=== PATIENT | male | born 1945 | race Caucasian/White ===

== ENCOUNTER → 2021-05-02 | Outpatient (CLI) | payer MEDICARE ==
[2014-07-13 15:48] VITALS: BP 112/57
[~2021-05-02] MED LIST: ALLO300T PO; ASPI-252 PO; ASPI-630 PO; ATOR40TA59 PO; CARV3.12 PO; CLOP75TA PO; CLOP75TA57 PO; DOCU-109 PO; FAMO-63 PO; FLUT16SP NS; FURO40TA4 PO; GABA600T7 PO; HYDR-2761 PO; LOVA40TA2 PO; MAGN296S68 PO; METF-658 PO; METF100010 PO; METF500T16 PO; MULT-658 PO; OMEG1CAP65 PO; SERT50TA PO; UBID400C3 PO; VENTOLIN HFA18 GM INH
== END ==
LOC: SURGPAT 13:34
PROVIDERS: ATTEND Neurological Surgery
DX: Z01.812 Encounter for preprocedural laboratory examination (principal); M48.062 Spinal stenosis, lumbar region with neurogenic claudication
CPT/HCPCS: 87641

== ENCOUNTER → 2021-05-10 | Outpatient (CLI) | payer MEDICARE ==
[2014-07-13 15:48] VITALS: BP 112/57
== END ==
LOC: LAB 09:52
PROVIDERS: ATTEND Neurological Surgery
DX: Z01.812 Encounter for preprocedural laboratory examination (principal); Z20.822 Contact with and (suspected) exposure to COVID-19; M48.062 Spinal stenosis, lumbar region with neurogenic claudication
CPT/HCPCS: U0003; U0005

== ENCOUNTER 2021-05-12 07:01 | Inpatient (IN) | payer MEDICARE ==
[2021-05-05 13:26] VITALS: BP 160/76
--- NOTE | 2021-05-06 15:22 | PREOP HP ---
DATE OF SERVICE: 05/12/2021 PREOPERATIVE HISTORY AND PHYSICAL HISTORY OF PRESENT ILLNESS: The patient is a pleasant 76-year-old man who is having difficulty with low back pain with standing or walking. He says if he sits, he gains virtually immediate relief. The pain has gradually become more severe. He says in August, his pain was severe and then his left leg buckled and he fell. When the pain is severe, he rates it 10/10. Sitting, his pain is 0/10. He does have difficulty getting up from a chair and/or the bed. He sits most of the time. He is taking gabapentin and Tylenol. He had physical therapy, which he said did not help him. He had 2 epidural steroid injections recently, which he said lasted about 2 weeks each. CURRENT MEDICATIONS: ProAir HFA, Tylenol, gabapentin, allopurinol, Pepcid, fluticasone, Lasix, metformin, sertraline, atorvastatin and Plavix. PAST MEDICAL HISTORY: COPD, sleep apnea, diabetes, coronary artery disease. PAST SURGICAL HISTORY: Cardiac bypass surgery, cholecystectomy, bilateral knee replacements, biceps tendon repair. FAMILY HISTORY: Cancer, diabetes, hypertension, heart disease. SOCIAL HISTORY: Retired, , nonsmoker. ALLERGIES: DEMEROL AND SHELLFISH. REVIEW OF SYSTEMS: A 12-point review of systems was performed and is noncontributory except that mentioned above. PHYSICAL EXAMINATION: GENERAL: Alert, pleasant, in no acute distress. HEENT: Head is normocephalic, atraumatic. SKIN: Warm and dry. MUSCULOSKELETAL: Lumbar paraspinal muscle bulk is normal, restricted range of motion of the lumbar spine, [id number] tenderness of the lower lumbar spine with palpation, normal range of motion of the lower extremities bilaterally. EXTREMITIES: No clubbing, cyanosis or edema. NEUROLOGIC: Alert and oriented x 3. Strength is 5/5 in the lower extremities except 4+/5 left hip flexor and 4+/5 right foot dorsiflexion. Sensory was intact to light touch in the bilateral lower extremities. Reflexes were present and symmetric in the lower extremities bilaterally. Negative straight leg raising bilaterally. Normal gait. IMAGING DATA: I reviewed the lumbar MRI scan. There is severe stenosis at L3-4 and L4-5. ASSESSMENT AND PLAN: I believe the problems at L3-4 and L4-5 are responsible for his symptoms. He should require a 2-level laminectomy to help deal with this problem. I spoke with him about this. I spoke about the rationale, the technique and the risks. I spoke about the expected postoperative course. He understands. He would like to proceed. ANATOLY DR: Curt TID: [id number] NAIMA
[~2021-05-12] VITALS: Ht 175.3 cm; Wt 123.5 kg
[~2021-05-12 07:01] MED LIST changes: -ATOR40TA59 PO; +DEXAMETHASONE SOD PHOS 4 MG/ML VIAL ONE; -DOCU-109 PO; -HYDR-2761 PO; +HYDROmorphone 2 MG/ML VIAL IVP PRN; +INSULIN LISPRO 100 UNIT/ML 3ML VIAL for OP,RR ONLY. SQ PRN; +IV RINGERS,LACTATED 1000ML 1,000 ML IV SCH; +LIDOCAINE 2% PF 5 ML VIAL. ONE; +MORPHINE SULFATE 2 MG/ML INJ. IVP PRN; +ONDANSETRON PF 4 MG/2 ML VIAL. ONE; +PHENYLEPHRINE 10 MG/ML VIAL. ONE; +PROCHLORPERAZINE 10 MG/2 ML VIAL. IVP PRN; +PROPOFOL 10 MG/ML (20ML) VIAL. IV ONE; +PROPOFOL 50 ML IV ONE; +REMIFENTANIL 1 MG VIAL. IV ONE; +ROCURONIUM 50 MG/5 ML VIAL. ONE; +SUCCINYLCHOLINE 200 MG/10 ML VIAL. ONE; +ceFAZolin 2GM PREMIX 2 GM/50 ML BAG IV ONE; +ceFAZolin SODIUM 1 GM in IV NORMAL SALINE 1000ML BAG 1,000 ML IRR ONE; +fentaNYL PF VIAL 100 MCG/2 ML VIAL IVP PRN; +fentaNYL PF VIAL 100 MCG/2 ML VIAL ONE
[2021-05-12 07:36] VITALS: BP 160/74
[2021-05-12] MEDS ORDERED: SEVOFLURANE > 120 MINUTES. IH ONE (07:36)
[2021-05-12] MEDS ORDERED: PROPOFOL 50 ML IV ONE ×2 (07:36→08:59)
[2021-05-12] MEDS ORDERED: BUPIVACAINE-EPI 0.5% 30 ML VIAL KIT. ONE (07:40)
[2021-05-12] MEDS ORDERED: KETOROLAC 60 MG/2 ML VIAL. ONE (07:40)
[2021-05-12] MEDS ORDERED: GELATIN SPONGE SIZE 100. ONE (07:40)
[2021-05-12] MEDS ORDERED: THROMBIN TOPICAL 20,000 UNIT SPRAY.SYRN KIT TP ONE (07:40)
[2021-05-12] MEDS ORDERED: ATOR40TA59 PO (07:44)
[2021-05-12] MEDS ORDERED: INSULIN LISPRO 100 UNIT/ML 3ML VIAL for OP,RR ONLY. SQ ONE (08:00)
[2021-05-12] MEDS ORDERED: GLYCOPYRROLATE 1 MG/5 ML VIAL. ONE (08:03)
[2021-05-12] MEDS ORDERED: NEOSTIGMINE METHYLSULFATE 5 MG/5 ML SYRINGE. ONE (08:03)
[2021-05-12] MEDS ORDERED: REMIFENTANIL 1 MG VIAL. IV ONE (08:51)
[2021-05-12] MEDS ORDERED: HYDROmorphone 2 MG/ML VIAL ONE (09:48)
[2021-05-12] MEDS ORDERED: NALOXONE 0.4 MG/ML VIAL. IV PRN (12:15)
[2021-05-12] MEDS ORDERED: NON FORMULARY ITEM (Albuterol Sulfate (Ventolin Hfa Inhaler) 2 PUFF) INH PRN (12:15)
[2021-05-12] MEDS ORDERED: CALCIUM CARBONATE 500 MG TAB.CHEW PO PRN (12:15)
[2021-05-12] MEDS ORDERED: fentaNYL PF VIAL 100 MCG/2 ML VIAL IVP PRN (12:15)
[2021-05-12] MEDS ORDERED: HYDROcodone/APAP 5/325MG 1 TAB TABLET PO PRN (12:15)
[2021-05-12] MEDS ORDERED: ACETAMINOPHEN 325 MG TABLET. PO PRN (12:15)
[2021-05-12] MEDS ORDERED: FLUTICASONE 50MCG/NASAL SPRAY 16GM BOTTLE. NS PRN (12:15)
[2021-05-12] MEDS ORDERED: MAGNESIUM HYDROXIDE 2,400 MG/30 ML ORAL.SUSP. PO PRN (12:15)
[2021-05-12] MEDS ORDERED: MAG HYDROX/ALUMINUM HYD/SIMETH 30 ML ORAL.SUSP PO PRN (12:15)
[2021-05-12] MEDS ORDERED: diphenhydrAMINE HCL 25 MG CAPSULE PO PRN (12:15)
[2021-05-12] MEDS ORDERED: 0.9 % SODIUM CHLORIDE 10 ML DISP.SYRIN. IV PRN (12:15)
[2021-05-12] MEDS ORDERED: ATROPINE 1 MG/10 ML DISP.SYRINGE. ONE (12:27)
[2021-05-12] MEDS ORDERED: ALBUTEROL SULFATE 2.5 MG/3 ML NEBU. NEB PRN (12:30)
[2021-05-12] MEDS ORDERED: ALBUTEROL SULFATE 2.5 MG/3 ML NEBU. NEB ONE (12:45)
[2021-05-12] MEDS ORDERED: fentaNYL PF VIAL 100 MCG/2 ML VIAL ONE (13:21)
[2021-05-12] MEDS: fentaNYL PF VIAL 100 MCG/2 ML VIAL IVP PRN ×4 (13:26→14:11)
[2021-05-12] MEDS: GABAPENTIN 300 MG CAPSULE. PO SCH ×2 (14:00→19:41)
[2021-05-12] MEDS: POTASSIUM CL 20MEQ D5-0.45NACL 1,000 ML IV SCH (17:18)
[2021-05-12 19:00] VITALS: BP 110/54
[2021-05-12] MEDS: METHOCARBAMOL 750 MG TABLET PO PRN (19:38)
[2021-05-12] MEDS: metFORMIN XR 500 MG TAB.ER.24H PO SCH (19:40)
[2021-05-12] MEDS: DOCUSATE SODIUM 100 MG CAPSULE. PO SCH (19:40)
[2021-05-12] MEDS: FAMOTIDINE 20 MG TABLET. PO SCH (19:41)
[2021-05-12] MEDS: SERTRALINE 50 MG TABLET. PO SCH (19:41)
[2021-05-12] MEDS: HYDROcodone/APAP 5/325MG 1 TAB TABLET PO PRN (22:11)
[2021-05-12 23:00] VITALS: BP 103/52
[2021-05-13 03:00] VITALS: BP 110/58
[2021-05-13] MEDS: POTASSIUM CL 20MEQ D5-0.45NACL 1,000 ML IV SCH (03:20)
[2021-05-13] MEDS: HYDROcodone/APAP 5/325MG 1 TAB TABLET PO PRN ×4 (06:00→22:56)
[2021-05-13] MEDS ORDERED: ceFAZolin SODIUM 3 GM in IV DEXTROSE 5% 100ML 100 ML IV PRN (06:00)
[2021-05-13 07:00] VITALS: BP 110/57
[2021-05-13] MEDS: METHOCARBAMOL 750 MG TABLET PO PRN (08:16)
[2021-05-13] MEDS: GABAPENTIN 300 MG CAPSULE. PO SCH ×3 (08:17→22:05)
[2021-05-13] MEDS: DOCUSATE SODIUM 100 MG CAPSULE. PO SCH ×3 (08:18→22:04)
[2021-05-13] MEDS: FUROSEMIDE 40 MG TABLET. PO SCH (09:00)
--- NOTE | 2021-05-13 10:27 | CONS ---
DATE OF CONSULTATION: 05/13/2021 PULMONARY CONSULTATION ATTENDING PHYSICIAN: Florencio Ambriz MD. REASON FOR CONSULTATION: Postop hypoxia. HISTORY OF PRESENT ILLNESS: The patient is a 76-year-old obese male with a BMI of 40. He sees my partner, Dr. Manuel in the office. The patient has history of obesity hypoventilation syndrome and sleep apnea. He has remote history of tobacco use. He uses CPAP with good compliance on a nightly basis. In addition, he is also on 2 liters of oxygen at nighttime. He does not use it during the day. He was hospitalized recently as he was having chronic back pain. The patient underwent a lumbar laminectomy. Postop, he had some issues with some hypoxia. The patient was subsequently extubated. He is currently requiring 4 liters of oxygen. He denies any shortness of breath. Denies any cough, fever, chills. No chest pains. No nausea, vomiting or diarrhea. I reviewed the patient's chest x-ray and it shows elevated hemidiaphragms with poor inspiratory effort, but no definite pneumonia or CHF observed. PAST MEDICAL HISTORY: Significant for history of COPD, history of MARIA DOLORES/OHS, history of diabetes and coronary artery disease. PAST SURGICAL HISTORY: Previously coronary artery bypass surgery, cholecystectomy, bilateral knee replacement and biceps tendon repair. FAMILY HISTORY: Cancer, diabetes, hypertension, and heart disease. SOCIAL HISTORY: Retired. . Remote history of tobacco use. ALLERGIES: MEPERIDINE, NABUMETONE. REVIEW OF SYSTEMS: A 12-point system obtained. Pertinent positives discussed in my present illness, otherwise noncontributory. All systems that were negative were reviewed as well. PHYSICAL EXAMINATION: VITAL SIGNS: Reviewed. Currently on 3 liters nasal cannula. Saturations are 93%. Afebrile, blood pressure stable. NECK: Supple. LUNGS: Clear. CARDIOVASCULAR: With a regular rate. ABDOMEN: Soft, obese. EXTREMITIES: With no pitting edema. LABORATORY DATA: Reviewed. Blood sugar 141. Chest x-ray as discussed in my history of present illness. IMPRESSION: 1. Mild postoperative hypoxia in a patient who is morbidly obese. The hypoxia is likely contributed by the effect of anesthetics and narcotics. He has no symptoms of congestive heart failure or pneumonia. His chest x-ray is clear except for elevated hemidiaphragms. 2. The patient with underlying obstructive sleep apnea/obesity hypoventilation syndrome. He uses CPAP with good compliance at nighttime along with 2 liters of oxygen. 3. Status post laminectomy. RECOMMENDATIONS: 1. The patient is clinically stable, currently down to 3 liters of oxygen. I will take him off oxygen and check his saturations on room air and also ambulate to see if he needs oxygen temporarily during the day. 2. Minimize narcotics. 3. Incentive spirometry. 4. P.r.n. bronchodilators. 5. Could be discharged home from a pulmonary standpoint today with or without oxygen and follow up with Dr. Manuel in the office. 6. Follow Dr. Ambriz's recommendations. Discussed with RN. LYNN/MARIELY/WILLA DR: LYNN/karel TID: [id number]
--- NOTE | 2021-05-13 10:37 | RAD ---
EXAM: AP View of the chest DATE: 05/13/2021 7:42 AM INDICATION: Reason: hypoxia, post op / Spl. Instructions: / History: COMPARISON: No Prior FINDINGS: The heart is not enlarged. Aortic calcifications are seen. Changes of median sternotomy. Left lung base and medial right lung base opacity likely consolidative process such as pneumonia. Tra ce pleural effusions. No pneumothorax. IMPRESSION: 1. Left lung bases and medial right lung base opacities likely atelectasis or consolidative process such as pneumonia. 2. Trace pleural effusions Electronically signed by: Amado Brown MD (05/13/2021 10:35 AM) [id number]
[2021-05-13 11:00] VITALS: BP 122/63
--- NOTE | 2021-05-13 11:29 | OP ---
DATE OF SURGERY: 05/12/2021 PREOPERATIVE DIAGNOSIS: Severe stenosis at L3-L4 and moderately severe stenosis at L4-L5 with neurogenic claudication. POSTOPERATIVE DIAGNOSIS: Severe stenosis at L3-L4 and moderately severe stenosis at L4-L5 with neurogenic claudication. OPERATION PERFORMED: Bilateral hemilaminotomies with decompression of dura and nerve root, L3-L4, left direct laminectomy L4-L5. The operation was done with EMG monitoring, SSEP monitoring, fluoroscopy, microscopic dissection. SPECIMEN: Decompression. SURGEON: Florencio Ambriz M.D. CAFE TEAM MEMBER: NICANOR Mehta, assisted with the surgery. She assisted with the exposure, the decompression as well as the closure. OPERATIVE INDICATIONS: The patient is a very pleasant 76-year-old who has developed problems with severe lower back pain along with pain in both of his lower extremities. Overall, the left leg had become the most painful and when speaking with him the morning of surgery that was the most symptomatic region.I explained to him the surgery, the risks, the technique. I explained the expected postoperative course, and he understood and wished to go ahead. DESCRIPTION OF PROCEDURE: Following general endotracheal anesthesia, the patient was positioned prone on the Yordan table. Lumbar region was prepped and draped in standard fashion. SAYRA hose and AV impulse boots were applied for DVT prophylaxis. The microscope was draped, fluoroscopy was draped and brought in the field. Monitoring was established. Ancef 3 grams was given less than 1 hour prior to initiation of the surgery. Using fluoroscopic guidance, a midline incision was made extending from mid L3 to mid L5, I dissected down through skin and subcutaneous tissue and on the left side, reflected the paraspinal muscles and placed a [place] microdisk retractor, brought in the microscope with a high speed air drill. I performed a generous hemilaminotomy at L3-L4. I grasped ligamentum flavum and peeled this away and performed a partial foraminotomy. I fully decompressed the entire region. I palpated the disc which was flat, no discectomy was warranted and the region looked very well decompressed. I went down to L4-L5 in a similar fashion, performed a generous hemilaminotomy and a partial foraminotomy with a high-speed air drill. I tilted the patient away from sc and drilled across to the contralateral side. I removed the epidural fat from the midline as well as opened further with a 2.5 [place] rongeurs superiorly and inferiorly and then worked further laterally and fully decompressed the region. Again, no discectomy was warranted. After palpating the disc at L3-L4, there was considerable scarring of the ligamentum flavum against the dura and it took some time to free this up with micro instruments and fully decompressed this region. I then went to the L3-L4 on the right side and reflected the paraspinal muscles and placed retractors. At this level, I burred down a generous hemilaminotomy, trimmed away thickened ligamentum flavum, performed a partial foraminotomy. I palpated beneath the dura and the disc was flat, no discectomy was warranted. I carefully obtained excellent hemostasis on both sides. At this point, I felt that I had an excellent decompression. I removed the retractor and obtained excellent hemostasis and closed the wound in layers with absorbable suture. The skin was closed with 4-0 subcuticular stitch. I was quite pleased with the surgery. KATELYNN/ELYSIA DR: Shannon TID: [id number] NAIMA
[2021-05-13] MEDS: metFORMIN XR 500 MG TAB.ER.24H PO SCH ×2 (11:46→22:05)
[2021-05-13] MEDS: ALLOPURINOL 300 MG TABLET. PO SCH (11:46)
--- NOTE | 2021-05-13 12:53 | PDOC ---
PROGRESS NOTES Date of Service DATE: 05/13/21 TIME: 12:50 Subjective Subjective POD #1 S/P lumbar decompression L3-4, L4-5 up in chair, eating lunch legs and hips feel much better, some incisional pain- controlled with medication Objective Objective Vital Signs Date Time Temp Pulse Resp B/P (MAP) Pulse Ox O2 Delivery O2 Flow Rate FiO2 05/13/21 11:47 Nasal Cannula 2.0 05/13/21 11:00 97.6 74 20 122/63 (82) 91 97.6 Intake and Output 05/13/21 07:00 Intake Total 1925 ml Output Total 550 ml Balance 1375 ml Intake Oral 725 ml IV Total 1200 ml Output Urine Total 500 ml Estimated Blood Loss 50 ml Physical Exam General: Alert, Oriented X3, Cooperative, No acute distress MUSCULOSKELETAL: Other (BROWN) Neuro: Normal speech Skin: Other (Dressing dry, intact) Plan Plan of Care continue PT/ OT possible dc tomorrow with [facility] may need SNF d/w RN Comment Review of Relevant I have reviewed the following items cristian (where applicable) has been applied. Labs Laboratory Tests Test 05/12/21 07:34 05/12/21 09:39 05/12/21 10:48 05/12/21 12:38 Glucose (Fingerstick) 145 mg/dL (70-99) 133 mg/dL (70-99) 95 mg/dL (70-99) 128 mg/dL (70-99) Test 05/12/21 18:07 05/12/21 19:55 05/13/21 07:09 05/13/21 11:16 Glucose (Fingerstick) 113 mg/dL (70-99) 204 mg/dL (70-99) 141 mg/dL (70-99) 161 mg/dL (70-99) Laboratory Tests Test 05/12/21 18:07 05/12/21 19:55 05/13/21 07:09 05/13/21 11:16 Glucose (Fingerstick) 113 mg/dL (70-99) 204 mg/dL (70-99) 141 mg/dL (70-99) 161 mg/dL (70-99) Medications Current Medications Cefazolin Sodium 1 gm/Sodium Chloride 1,000 ml @ 1,000 mls/hr 1X ONCE IRR Last administered on 05/12/21at 09:34; Start 05/12/21 at 06:00; Stop 05/12/21 at 06:59; Status DC Fentanyl Citrate (Fentanyl 2ml Vial) 25 mcg PRN Q5MIN PRN IVP MILD PAIN 1-3 Last administered on 05/12/21at 14:11; Start 05/12/21 at 06:00; Stop 05/13/21 at 05:59; Status DC Fentanyl Citrate (Fentanyl 2ml Vial) 50 mcg PRN Q5MIN PRN IVP MODERATE PAIN 4- 6; Start 05/12/21 at 06:00; Stop 05/13/21 at 05:59; Status DC Morphine Sulfate (Morphine Sulfate) 1 mg PRN Q10MIN PRN IVP SEVERE PAIN 7-10; Start 05/12/21 at 06:00; Stop 05/13/21 at 05:59; Status DC Ringer's Solution 1,000 ml @ 30 mls/hr Q24H IV Last administered on 05/12/21at 07:48; Start 05/12/21 at 06:00; Stop 05/12/21 at 17:59; Status DC Hydromorphone HCl (Dilaudid) 0.5 mg PRN Q10MIN PRN IVP SEVERE PAIN 7-10, 2nd CHOICE; Start 05/12/21 at 06:00; Stop 05/13/21 at 05:59; Status DC Prochlorperazine Edisylate (Compazine) 5 mg PACU PRN PRN IVP NAUSEA, MRX1; Start 05/12/21 at 06:00; Stop 05/13/21 at 05:59; Status DC Cefazolin Sodium/ Dextrose 50 ml @ 100 mls/hr 1X PREOP PRN IV PRIOR TO PROCEDURE; Start 05/12/21 at 06:00; Stop 05/12/21 at 06:28; Status DC Cefazolin Sodium 3 gm/Dextrose 100 ml @ 200 mls/hr 1X PREOP PRN IV PRIOR TO PROCEDURE Last administered on 05/12/21at 09:18; Start 05/13/21 at 06:00; Stop 05/13/21 at 15:00 Insulin Human Lispro (HumaLOG VIAL for OP,RR ONLY) 0-10 units PRN Q1HR PRN SQ PER PROTOCOL Last administered on 05/12/21at 07:54; Start 05/12/21 at 06:30; Stop 05/13/21 at 06:29; Status DC Gelatin (Gelfoam Size 100) 1 each STK-MED ONCE .ROUTE Last administered on 05/12/21at 09:34; Start 05/12/21 at 07:40; Stop 05/12/21 at 07:40; Status DC Bupivacaine HCl/ Epinephrine Bitart (Sensorcain-Epi 0.5% Kit) 30 ml STK-MED ONCE .ROUTE Last administered on 05/12/21at 09:34; Start 05/12/21 at 07:40; Stop 05/12/21 at 07:40; Status DC Ketorolac Tromethamine (Toradol Im) 60 mg STK-MED ONCE .ROUTE Last administered on 05/12/21at 09:34; Start 05/12/21 at 07:40; Stop 05/12/21 at 07:40; Status DC Thrombin 20,000 unit STK-MED ONCE TP Last administered on 05/12/21at 09:34; Start 05/12/21 at 07:40; Stop 05/12/21 at 07:41; Status DC Propofol (Diprivan) 200 mg STK-MED ONCE IV ; Start 05/12/21 at 05:47; Stop 05/12/21 at 07:47; Status DC Lidocaine HCl (Lidocaine Pf 2% Vial) 5 ml STK-MED ONCE .ROUTE ; Start 05/12/21 at 05:47; Stop 05/12/21 at 07:47; Status DC Ondansetron HCl (Zofran) 4 mg STK-MED ONCE .ROUTE ; Start 05/12/21 at 05:47; Stop 05/12/21 at 07:47; Status DC Phenylephrine HCl (Michael-Synephrine Inj) 10 mg STK-MED ONCE .ROUTE ; Start 05/12/21 at 05:47; Stop 05/12/21 at 07:47; Status DC Propofol 50 ml @ As Directed STK-MED ONCE IV ; Start 05/12/21 at 05:47; Stop 05/12/21 at 07:47; Status DC Dexamethasone Sodium Phosphate (Decadron) 4 mg STK-MED ONCE .ROUTE ; Start 05/22 at 05:47; Stop 05/12/21 at 07:47; Status DC Fentanyl Citrate (Fentanyl 2ml Vial) 100 mcg STK-MED ONCE .ROUTE ; Start at 05:47; Stop 05/12/21 at 07:47; Status DC Rocuronium [place] (Zemuron) 50 mg STK-MED ONCE .ROUTE ; Start 05/12/21 at 05:47; Stop 05/12/21 at 07:47; Status DC Remifentanil HCl (Ultiva) 1 mg STK-MED ONCE IV ; Start 05/12/21 at 05:48; Stop 05/12/21 at 07:48; Status DC Succinylcholine Chloride (Anectine) 200 mg STK-MED ONCE .ROUTE ; Start 05/12/21 at 06:04; Stop 05/12/21 at 08:04; Status DC Propofol 50 ml @ As Directed STK-MED ONCE IV ; Start 05/12/21 at 07:36; Stop 05/12/21 at 09:37; Status DC Sevoflurane (Ultane) 90 ml STK-MED ONCE IH ; Start 05/12/21 at 07:36; Stop 05/12/21 at 09:37; Status DC Glycopyrrolate (Robinul) 1 mg STK-MED ONCE .ROUTE ; Start 05/12/21 at 08:03; Stop 05/12/21 at 10:03; Status DC Neostigmine [place] (Neostigmine Methylsulfate) 5 mg STK-MED ONCE .ROUTE ; Start 05/12/21 at 08:03; Stop 05/12/21 at 10:04; Status DC Remifentanil HCl (Ultiva) 1 mg STK-MED ONCE IV ; Start 05/12/21 at 08:51; Stop 05/12/21 at 10:52; Status DC Propofol 50 ml @ As Directed STK-MED ONCE IV ; Start 05/12/21 at 08:59; Stop 05/12/21 at 11:00; Status DC Hydromorphone HCl (Dilaudid) 2 mg STK-MED ONCE .ROUTE ; Start 05/12/21 at 09:48; Stop 05/12/21 at 11:48; Status DC Allopurinol (Zyloprim) 300 mg DAILYBFRLUN PO Last administered on 05/13/21at 11:46; Start 05/13/21 at 11:30 Atorvastatin Calcium (Lipitor) 40 mg QHS PO ; Start 05/13/21 at 21:00 Famotidine (Pepcid) 20 mg HS PO Last administered on 05/12/21at 19:41; Start 05/12/21 at 21:00 Fluticasone Propionate (Flonase) 2 spray PRN DAILY PRN NS ALLERGY CONTROL; Start 05/12/21 at 12:15 Furosemide (Lasix) 40 mg DAILY PO ; Start 05/13/21 at 09:00 Metformin HCl (Glucophage Xr) 500 mg DAILYBFRLUN PO Last administered on 05/13/21at 11:46; Start 05/13/21 at 11:30 Sertraline HCl (Zoloft) 50 mg HS PO Last administered on 05/12/21at 19:41; Start 05/12/21 at 21:00 Non-Formulary Medication (Albuterol Sulfate (Ventolin Hfa Inhaler)) 2 puff PRN QID PRN INH WHEEZING; Start 05/12/21 at 12:15; Status UNV Gabapentin (Neurontin) 300 mg TID PO Last administered on 05/13/21at 08:17; Start 05/12/21 at 14:00 Metformin HCl (Glucophage Xr) 1,000 mg HS PO Last administered on 05/12/21at 19:40; Start 05/12/21 at 21:00 Fentanyl Citrate (Fentanyl 2ml Vial) 50 mcg PRN Q2HR PRN IVP PAIN; Start 05/02 07/22 at 12:15 Acetaminophen (Tylenol) 650 mg PRN Q6HRS PRN PO MILD PAIN / TEMP > 100.3'F; Start 05/12/21 at 12:15 Al Hydroxide/Mg Hydroxide (Mylanta Plus Xs) 30 ml PRN Q3HRS PRN PO HEARTBURN / GAS; Start 05/12/21 at 12:15 Calcium Carbonate/ Glycine (Tums) 500 mg PRN Q3HRS PRN PO INDIGESTION; Start 05/12/21 at 12:15 Diphenhydramine HCl (Benadryl) 25 mg PRN Q6HRS PRN PO ITCHING; Start 05/12/21 at 12:15 Naloxone HCl (Narcan) 0.1 mg PRN Q2MIN PRN IV SEE COMMENTS; Start 05/12/21 at 12:15 Sodium Chloride (Normal Saline Flush) 3 ml QSHIFT PRN IV AFTER MEDS AND BLOOD DRAWS; Start 05/12/21 at 12:15 Potassium Chloride/Dextrose/ Sod Cl 1,000 ml @ 75 mls/hr [id number] IV Last administered on 05/12/21at 17:18; Start 05/12/21 at 14:00 Acetaminophen/ Hydrocodone Bitart (Lortab 5/325) 1 tab PRN Q4HRS PRN PO MILD PAIN 1-3 (2ND CHOICE) Last administered on 05/12/21at 17:18; Start 05/12/21 at 12:15 Acetaminophen/ Hydrocodone Bitart (Lortab 5/325) 2 tab PRN Q4HRS PRN PO MODERATE PAIN, SEVERE PAIN Last administered on 05/13/21at 11:47; Start 05/12/21 at 12:15 Methocarbamol (Robaxin) 750 mg PRN TID PRN PO MUSCLE SPASMS Last administered on 05/13/21at 08:16; Start 05/12/21 at 12:15 Docusate Sodium (Colace) 100 mg BID PO ; Start 05/12/21 at 21:00 Magnesium Hydroxide (Milk Of Magnesia) 2,400 mg PRN Q12HR PRN PO CONSTIPATION; Start 05/12/21 at 12:15 Albuterol Sulfate (Ventolin Neb Soln) 2.5 mg PRN QID PRN NEB SHORTNESS OF BREATH; Start 05/12/21 at 12:30 Atropine Sulfate (ATROPINE 1mg SYRINGE) 1 mg STK-MED ONCE .ROUTE ; Start 05/12/21 at 12:27; Stop 05/12/21 at 12:27; Status DC Albuterol Sulfate (Ventolin Neb Soln) 2.5 mg 1X ONCE NEB ; Start 05/12/21 at 12:45; Stop 05/12/21 at 12:46; Status DC Fentanyl Citrate (Fentanyl 2ml Vial) 100 mcg STK-MED ONCE .ROUTE ; Start 05/12/21 at 13:21; Stop 05/12/21 at 13:22; Status DC Active Scripts Active Reported Atorvastatin Calcium 40 Mg Tablet 1 Tab PO DAILY Zoloft (Sertraline Hcl) 50 Mg Tablet 50 Mg PO HS Furosemide 40 Mg Tablet 40 Mg PO DAILY Ventolin Hfa Inhaler (Albuterol Sulfate) 18 Gm Hfa.aer.ad 2 Puff INH PRN QID PRN Fluticasone Propionate Nasal Sebastian (Fluticasone Propionate) 16 Gm Sebastian.susp 2 Sebastian NS PRN DAILY PRN Gabapentin 600 Mg Tablet 300 Mg PO TID Metformin Hcl Er (Metformin Hcl) 500 Mg Tab.er.24h 500 Mg PO DAILYBFRLUN Metformin Hcl Er (Metformin Hcl) 1,000 Mg Tab.er.24 1,000 Mg PO HS Clopidogrel (Clopidogrel Bisulfate) 75 Mg Tablet 75 Mg PO DAILY Pepcid (Famotidine) 20 Mg Tablet 20 Mg PO HS Allopurinol 300 Mg Tablet 1 Tab PO DAILYBFRLUN Vitals/I & O Vital Sign - Last 24 Hours 05/12/21 05/12/21 05/12/21 05/12/21 12:56 13:11 13:26 13:41 Pulse 86 84 80 80 Resp 16 18 16 14 B/P (MAP) 156/69 147/71 149/73 111/63 Pulse Ox 93 94 96 87 O2 Delivery Simple Mask Simple Mask Simple Mask Room Air O2 Flow Rate 15 8 6 05/12/21 05/12/21 05/12/21 05/12/21 13:56 14:11 14:45 17:18 Pulse 78 74 Resp 18 13 B/P (MAP) 139/70 134/70 Pulse Ox 94 94 89 O2 Delivery Nasal Cannula Nasal Cannula Nasal Cannula Nasal Cannula O2 Flow Rate 3 3 3.0 3.0 05/12/21 05/12/21 05/12/21 05/12/21 19:00 19:38 22:11 22:41 Temp 97.5 97.5 Pulse 68 Resp 19 18 18 B/P (MAP) 110/54 (72) Pulse Ox 92 92 92 O2 Delivery Nasal Cannula Nasal Cannula Nasal Cannula Nasal Cannula O2 Flow Rate 2.0 3.0 3.0 3.0 05/12/21 05/13/21 05/13/21 05/13/21 23:00 03:00 06:00 06:30 Temp 98.0 98.1 98.0 98.1 Pulse 64 72 Resp 18 18 20 18 B/P (MAP) 103/52 (69) 110/58 (75) Pulse Ox 94 92 92 92 O2 Delivery Nasal Cannula Nasal Cannula Nasal Cannula Nasal Cannula O2 Flow Rate 3.0 3.0 3.0 3.0 11/06/2105/13/21 05/13/21 07:00 11:00 11:47 Temp 98.8 97.6 98.8 97.6 Pulse 73 74 Resp 19 20 B/P (MAP) 110/57 (74) 122/63 (82) Pulse Ox 93 91 O2 Delivery Nasal Cannula Nasal Cannula Nasal Cannula O2 Flow Rate 3.0 3.0 2.0 Intake and Output 05/12/21 05/12/21 05/13/21 15:00 23:00 07:00 Intake Total 1200 ml 600 ml 125 ml Output Total 50 ml 500 ml Balance 1150 ml 600 ml -375 ml Justifications for Admission Other Justification BRO BARRERA MD May 13, 2021 12:53
[2021-05-13 15:00] VITALS: BP 113/64
[2021-05-13 16:42] LABS: HEMATOCRIT 38.1 % (39.0-53.0); HEMOGLOBIN 12.7 g/dL (13.0-17.5); WHITE BLOOD COUNT 8.5 x10^3/uL (4.0-11.0)
[2021-05-13 17:14] LABS: BLOOD UREA NITROGEN 12 mg/dL (8-26); CALCIUM 8.4 mg/dL (8.5-10.1); CARBON DIOXIDE 37 mmol/L (21-32); CHLORIDE 102 mmol/L (98-107); CREATININE 0.9 mg/dL (0.7-1.3); GFR 81.6; GLUCOSE 133 mg/dL (70-99); POTASSIUM 4.1 mmol/L (3.5-5.1); SODIUM 138 mmol/L (136-145)
--- NOTE | 2021-05-13 17:14 | PATHOLOGY ---
[facility] Accession Number: [id number] . 01 Material submitted: . vertebral column - LUMBAR DECOMPRESSION . 01 Clinical history: . LUMBAR STENOSIS LUMBAR MICRODECOMPRESSION . 02 Diagnosis: Segments of fibrocartilaginous and skeletal muscle tissue and bone, lumbar decompression: - Degenerative changes of fibrocartilaginous tissue. (JPM:pit; 05/13/2021) QTP 05/13/2021 1402 Local . 02 Comment: There is no evidence of an acute inflammatory process or malignancy. (JPM:[facility]; 05/13/2021) . 02 Electronically signed: . Jason Aleman MD, Pathologist NPI- [id number] . 01 Gross description: . The specimen is received in formalin, labeled "Diaz Romero, lumbar decompression". Received are multiple segments of pale whatley to pink-whatley fibrous tissue admixed with fragments of gritty bone measuring 4.5 x 4.1 x 0.7 cm in aggregate dimensions. The specimen is submitted representatively in cassette A1, following light decalcification. ([facility]; 05/12/2021) NRI/NRI 05/12/2021 1925 Local . 02 Pathologist provided ICD-10: M99.73 . 02 CPT . 943930, 503311 Specimen Comment: A courtesy copy of this report has been sent to [phone], [phone] Specimen Comment: [id number] Specimen Comment: Report sent to / DR MCGHEE Specimen Comment: A duplicate report has been generated due to demographic updates. Performed at: [address], [place], [place] [id number] MD Shlomo Jarrell MD Phone: [phone] Performed at: 02 [facility] [address] [place], [place] [id number] MD Jason Aleman MD Phone: [phone]
--- NOTE | 2021-05-13 18:53 | CONS ---
DATE OF CONSULTATION: 05/13/2021 LOCATION: He is in room 406. ATTENDING PHYSICIAN: Florencio Ambriz MD REASON FOR CONSULTATION: The patient was seen at the request of Dr. Ambriz for rehab evaluation. HISTORY: This is a 76-year-old right-handed male with chronic lower back pain from injury sustained initially in 1961, he had few more injuries, last injury in 08/2020. He usually bowls for recreation. He did not do it after his injury in August, but he did some in the summer, but in the last few months, he is having more difficulty, so he did not do any bowling. He admits back pain with radiation to both lower extremities. The patient admits more pain while standing and walking. Sitting eases his pain. He had 1 episode of his left leg buckling and he fell down in August. The patient is having difficulty getting up from chair and bed secondary to pain. Has been spending most of the time sitting up. He has been taking gabapentin and Tylenol. He had 2 lumbar epidural steroid injections, which helped relieve the pain only for about 2 weeks each time. He had physical therapy, did not help him much. PAST MEDICAL HISTORY: Includes chronic obstructive pulmonary disease, sleep apnea, diabetes mellitus, coronary artery disease status post coronary artery bypass graft, cholecystectomy, bilateral total knee arthroplasty done by Dr. Radu Carpio in the past, biceps tendon repair, bilateral carpal tunnel surgery. MEDICATIONS: He had been using ProAir, gabapentin, allopurinol, Pepcid, fluticasone, Lasix, metformin, sertraline, atorvastatin and Plavix and he uses oxygen by nasal cannula at 2 liters at nighttime. SOCIAL HISTORY: The patient is retired, . Nonsmoker. Lives alone. Had 3 steps to enter the house with no basement and no steps inside the house. FAMILY HISTORY: Carcinoma, diabetes mellitus, hypertension and heart disease. ALLERGIES: HE IS KNOWN ALLERGIC TO DEMEROL, SHELLFISH AND RELAFEN. The patient since admission underwent bilateral hemilaminectomies with decompression of the dura and nerve root at L3-L4, left direct laminectomy at L4-L5 for treatment of severe lumbar spinal stenosis at L3-L4, moderately severe stenosis at L4-L5 with neurogenic claudication. He admits continued soreness in his lower back. The patient has been voiding, had no bowel movement, usually he gets diarrhea. The patient would like to go home with home health. He had his step [id number] from [place] can come and help him, but she is on disability and 60 years old. PHYSICAL EXAMINATION:. GENERAL: Today revealed an elderly male. He is alert, oriented to time, place, person and circumstance, follows commands appropriately. NEUROLOGIC: Moves all 4 extremities voluntarily where he had 4+/5 grade muscle strength with relatively increased weakness of toe dorsiflexors, especially of right big toe. Deep tendon reflexes are decreased overall with absent knee and ankle jerks. He had pain free range of motion of both hip joints. He had tenderness to palpation over lumbar paraspinal muscles with recent tissue edema and operative wound had dressing in place. He had tenderness to palpation over lumbar area and sacroiliac joint. Straight leg raising test is negative bilaterally. The patient requires minimal assistance in coming to a standing position. Despite pain, he made a few steps at bedside using a roller walker. He gets tired very easily. His back pain is the one limiting his walking. His oxygen saturation dropped to 86% on room air. ASSESSMENT: 1. Chronic lower back pain from degenerative disk disease and degenerative joint disease of lumbar vertebrae with lumbar spinal stenosis, status post lumbar decompression laminectomy with postoperative pain and mobility limitations. 2. Diabetes mellitus with peripheral neuropathy. 3. History of coronary artery disease status post coronary artery bypass graft, bilateral total knee arthroplasty, chronic obstructive pulmonary disease, sleep apnea, obesity, clinical evidence of peripheral neuropathy from diabetes mellitus. RECOMMENDATIONS: Agree with the plan for physical therapy with occupational therapy and use of ice packs to his lower back. I thought of trying abdominal binder as lumbar corset, but he does not like to have the pressure on his back as he admits that causes increased discomfort. To see how he does with pain control in the next day or so. If he is doing well, hopefully home. If not, to consider transfer to rehab or [facility] care unit for continued care. Dr. Ambriz, I appreciate asking me to participate in the care of this interesting patient. I will be glad to see him for followup with you on as needed basis. MAYNOR FAIRCHILD: Guilherme TID: [id number]
[2021-05-13 19:00] VITALS: BP 126/61
[2021-05-13] MEDS: SERTRALINE 50 MG TABLET. PO SCH (22:04)
[2021-05-13] MEDS: ATORVASTATIN CALCIUM 40 MG TABLET. PO SCH (22:04)
[2021-05-13] MEDS: FAMOTIDINE 20 MG TABLET. PO SCH (22:05)
[2021-05-13 23:00] VITALS: BP 147/64
[2021-05-14 02:49] VITALS: BP 145/71
[2021-05-14 07:00] VITALS: BP 140/63
--- NOTE | 2021-05-14 07:16 | PDOC ---
PULMONARY PROGRESS NOTES DATE: 05/14/21 TIME: 07:12 Subjective 02 2 lpm didn't use cpap last night now says he doesn't use cpap at home no sob Vitals Vital Signs Date Time Temp Pulse Resp B/P (MAP) Pulse Ox O2 Delivery O2 Flow Rate FiO2 05/14/21 02:49 98.0 69 18 145/71 (95) 95 Nasal Cannula 3.0 98.0 ROS: No Nausea General: Alert HEENT: Other (nc at perr) Lungs: Clear Cardiovascular: S1, S2 Abdomen: Soft Neuro Exam: Alert Extremities: No Edema Skin: Warm Labs Laboratory Tests Test 05/12/21 07:34 05/12/21 09:39 05/12/21 10:48 05/12/21 12:38 Glucose (Fingerstick) 145 mg/dL (70-99) 133 mg/dL (70-99) 95 mg/dL (70-99) 128 mg/dL (70-99) Test 05/12/21 18:07 05/12/21 19:55 05/13/21 07:09 05/13/21 11:16 Glucose (Fingerstick) 113 mg/dL (70-99) 204 mg/dL (70-99) 141 mg/dL (70-99) 161 mg/dL (70-99) Test 05/13/21 16:10 05/13/21 16:34 05/13/21 20:07 White Blood Count 8.5 x10^3/uL (4.0-11.0) Hemoglobin 12.7 g/dL (13.0-17.5) Hematocrit 38.1 % (39.0-53.0) Platelet Count 171 x10^3/uL (140-400) Sodium Level 138 mmol/L (136-145) Potassium Level 4.1 mmol/L (3.5-5.1) Chloride Level 102 mmol/L (98-107) Carbon Dioxide Level 37 mmol/L (21-32) Anion Gap (6-14) Blood Urea Nitrogen 12 mg/dL (8-26) Creatinine 0.9 mg/dL (0.7-1.3) Estimated GFR (Cockcroft-Gault) 81.6 Glucose Level 133 mg/dL (70-99) Calcium Level 8.4 mg/dL (8.5-10.1) Glucose (Fingerstick) 140 mg/dL (70-99) 168 mg/dL (70-99) Laboratory Tests Test 05/13/21 11:16 05/13/21 16:10 05/13/21 16:34 05/13/21 20:07 Glucose (Fingerstick) 161 mg/dL (70-99) 140 mg/dL (70-99) 168 mg/dL (70-99) White Blood Count 8.5 x10^3/uL (4.0-11.0) Hemoglobin 12.7 g/dL (13.0-17.5) Hematocrit 38.1 % (39.0-53.0) Platelet Count 171 x10^3/uL (140-400) Sodium Level 138 mmol/L (136-145) Potassium Level 4.1 mmol/L (3.5-5.1) Chloride Level 102 mmol/L (98-107) Carbon Dioxide Level 37 mmol/L (21-32) Anion Gap (6-14) Blood Urea Nitrogen 12 mg/dL (8-26) Creatinine 0.9 mg/dL (0.7-1.3) Estimated GFR (Cockcroft-Gault) 81.6 Glucose Level 133 mg/dL (70-99) Calcium Level 8.4 mg/dL (8.5-10.1) Medications Active Scripts Medications Dose Route/Sig Max Daily Dose Days Date Category Atorvastatin Calcium 40 Mg Tablet 1 Tab PO DAILY 05/12/21 Reported Zoloft (Sertraline Hcl) 50 Mg Tablet 50 Mg PO HS 05/05/21 Reported Furosemide 40 Mg Tablet 40 Mg PO DAILY 05/05/21 Reported Ventolin Hfa Inhaler (Albuterol Sulfate) 18 Gm Hfa.aer.ad 2 Puff INH PRN QID PRN 05/05/21 Reported Fluticasone Propionate Nasal [place] (Fluticasone Propionate) 16 Gm [place].susp 2 [place] NS PRN DAILY PRN 05/05/21 Reported Gabapentin 600 Mg Tablet 300 Mg PO TID 05/05/21 Reported Metformin Hcl Er (Metformin Hcl) 500 Mg Tab.er.24h 500 Mg PO DAILYBFRLUN 05/05/21 Reported Metformin Hcl Er (Metformin Hcl) 1,000 Mg Tab.er.24 1,000 Mg PO HS 05/05/21 Reported Clopidogrel (Clopidogrel Bisulfate) 75 Mg Tablet 75 Mg PO DAILY 05/05/21 Reported Pepcid (Famotidine) 20 Mg Tablet 20 Mg PO HS 07/13/14 Reported Allopurinol 300 Mg Tablet 1 Tab PO DAILYBFRLUN 03/19/14 Reported Impression . IMPRESSION: 1. Mild postoperative hypoxia in a patient who is morbidly obese. The hypoxia is likely contributed by the effect of anesthetics and narcotics. He has no symptoms of congestive heart failure or pneumonia. His chest x-ray is clear except for elevated hemidiaphragms. 2. The patient with underlying obstructive sleep apnea/obesity hypoventilation syndrome. doesnt use CPAP with 2 liters of oxygen at home. 3. Status post laminectomy. Plan . RECOMMENDATIONS: 1. titrate fio2 to keep sat 90% on 2 lpm not on home 02 6 min walk at [place] 2. Minimize narcotics. avoid oversedation 3. Incentive spirometry to use multiple times an hr while awake 4. bronchodilators. 5. follow up with Dr. Manuel in the office. 6. Follow Dr. Ambriz's recommendations. 7. champ the importance of tx discussed in details advised to use cpap during sleep discussed w rn ok to [place] from pulm standpoint JEANETTE ROMERO MD May 14, 2021 07:16
[2021-05-14] MEDS: GABAPENTIN 300 MG CAPSULE. PO SCH ×3 (08:34→21:10)
[2021-05-14] MEDS: FUROSEMIDE 40 MG TABLET. PO SCH (08:34)
[2021-05-14] MEDS: DOCUSATE SODIUM 100 MG CAPSULE. PO SCH ×2 (08:34→21:10)
--- NOTE | 2021-05-14 10:08 | PDOC ---
PROGRESS NOTES Date of Service DATE: 05/14/21 TIME: 10:03 Subjective Subjective He continues with back pain with any movement and he is passing gases but no bowel movement yet and voiding well and he is getting up and walking with roller walker to bath room. He feels like he can go home tomorrow. Objective Objective Vital Signs Date Time Temp Pulse Resp B/P (MAP) Pulse Ox O2 Delivery O2 Flow Rate FiO2 05/14/21 07:30 Nasal Cannula 4.0 05/14/21 07:00 98.3 82 16 140/63 (88) 94 98.3 Intake and Output 05/14/21 07:00 Intake Total 1120 ml Output Total 1070 ml Balance 50 ml Intake Oral 1120 ml Output Urine Total 1070 ml # Voids 1 Physical Exam Physical Exam He is comfortable supine in bed and is moves all 4 extremities to commands and he continues with painfully limited lumbar spine ROM with diffuse tenderness to palpation and dressing in place. Plan Plan of Retirement when he feels comfortable with home health follow up. Comment Review of Relevant I have reviewed the following items cristian (where applicable) has been applied. Labs Laboratory Tests Test 05/12/21 10:48 05/12/21 12:38 05/12/21 18:07 05/12/21 19:55 Glucose (Fingerstick) 95 mg/dL (70-99) 128 mg/dL (70-99) 113 mg/dL (70-99) 204 mg/dL (70-99) Test 05/13/21 07:09 05/13/21 11:16 05/13/21 16:10 05/13/21 16:34 Glucose (Fingerstick) 141 mg/dL (70-99) 161 mg/dL (70-99) 140 mg/dL (70-99) White Blood Count 8.5 x10^3/uL (4.0-11.0) Hemoglobin 12.7 g/dL (13.0-17.5) Hematocrit 38.1 % (39.0-53.0) Platelet Count 171 x10^3/uL (140-400) Sodium Level 138 mmol/L (136-145) Potassium Level 4.1 mmol/L (3.5-5.1) Chloride Level 102 mmol/L (98-107) Carbon Dioxide Level 37 mmol/L (21-32) Anion Gap (6-14) Blood Urea Nitrogen 12 mg/dL (8-26) Creatinine 0.9 mg/dL (0.7-1.3) Estimated GFR (Cockcroft-Gault) 81.6 Glucose Level 133 mg/dL (70-99) Calcium Level 8.4 mg/dL (8.5-10.1) Test 05/13/21 20:07 Glucose (Fingerstick) 168 mg/dL (70-99) Laboratory Tests Test 05/13/21 11:16 05/13/21 16:10 05/13/21 16:34 05/13/21 20:07 Glucose (Fingerstick) 161 mg/dL (70-99) 140 mg/dL (70-99) 168 mg/dL (70-99) White Blood Count 8.5 x10^3/uL (4.0-11.0) Hemoglobin 12.7 g/dL (13.0-17.5) Hematocrit 38.1 % (39.0-53.0) Platelet Count 171 x10^3/uL (140-400) Sodium Level 138 mmol/L (136-145) Potassium Level 4.1 mmol/L (3.5-5.1) Chloride Level 102 mmol/L (98-107) Carbon Dioxide Level 37 mmol/L (21-32) Anion Gap (6-14) Blood Urea Nitrogen 12 mg/dL (8-26) Creatinine 0.9 mg/dL (0.7-1.3) Estimated GFR (Cockcroft-Gault) 81.6 Glucose Level 133 mg/dL (70-99) Calcium Level 8.4 mg/dL (8.5-10.1) Medications Current Medications Cefazolin Sodium 1 gm/Sodium Chloride 1,000 ml @ 1,000 mls/hr 1X ONCE IRR Last administered on 05/12/21at 09:34; Start 05/12/21 at 06:00; Stop 05/12/21 at 06:59; Status DC Fentanyl Citrate (Fentanyl 2ml Vial) 25 mcg PRN Q5MIN PRN IVP MILD PAIN 1-3 Last administered on 05/12/21at 14:11; Start 05/12/21 at 06:00; Stop 05/13/21 at 05:59; Status DC Fentanyl Citrate (Fentanyl 2ml Vial) 50 mcg PRN Q5MIN PRN IVP MODERATE PAIN 4- 6; Start 05/12/21 at 06:00; Stop 05/13/21 at 05:59; Status DC Morphine Sulfate (Morphine Sulfate) 1 mg PRN Q10MIN PRN IVP SEVERE PAIN 7-10; Start 05/12/21 at 06:00; Stop 05/13/21 at 05:59; Status DC Ringer's Solution 1,000 ml @ 30 mls/hr Q24H IV Last administered on 05/12/21at 07:48; Start 05/12/21 at 06:00; Stop 05/12/21 at 17:59; Status DC Hydromorphone HCl (Dilaudid) 0.5 mg PRN Q10MIN PRN IVP SEVERE PAIN 7-10, 2nd CHOICE; Start 05/12/21 at 06:00; Stop 05/13/21 at 05:59; Status DC Prochlorperazine Edisylate (Compazine) 5 mg PACU PRN PRN IVP NAUSEA, MRX1; Start 05/12/21 at 06:00; Stop 05/13/21 at 05:59; Status DC Cefazolin Sodium/ Dextrose 50 ml @ 100 mls/hr 1X PREOP PRN IV PRIOR TO PROCEDURE; Start 05/12/21 at 06:00; Stop 05/12/21 at 06:28; Status DC Cefazolin Sodium 3 gm/Dextrose 100 ml @ 200 mls/hr 1X PREOP PRN IV PRIOR TO PROCEDURE Last administered on 05/12/21at 09:18; Start 05/13/21 at 06:00; Stop 05/13/21 at 15:00; Status DC Insulin Human Lispro (HumaLOG VIAL for OP,RR ONLY) 0-10 units PRN Q1HR PRN SQ PER PROTOCOL Last administered on 05/12/21at 07:54; Start 05/12/21 at 06:30; Stop 05/13/21 at 06:29; Status DC Gelatin (Gelfoam Size 100) 1 each STK-MED ONCE .ROUTE Last administered on 05/12/21at 09:34; Start 05/12/21 at 07:40; Stop 05/12/21 at 07:40; Status DC Bupivacaine HCl/ Epinephrine Bitart (Sensorcain-Epi 0.5% Kit) 30 ml STK-MED ONCE .ROUTE Last administered on 05/12/21at 09:34; Start 05/12/21 at 07:40; Stop 05/12/21 at 07:40; Status DC Ketorolac Tromethamine (Toradol Im) 60 mg STK-MED ONCE .ROUTE Last administered on 05/12/21at 09:34; Start 05/12/21 at 07:40; Stop 05/12/21 at 07:40; Status DC Thrombin 20,000 unit STK-MED ONCE TP Last administered on 05/12/21at 09:34; Start 05/12/21 at 07:40; Stop 05/12/21 at 07:41; Status DC Propofol (Diprivan) 200 mg STK-MED ONCE IV ; Start 05/12/21 at 05:47; Stop 05/12/21 at 07:47; Status DC Lidocaine HCl (Lidocaine Pf 2% Vial) 5 ml STK-MED ONCE .ROUTE ; Start 05/12/21 at 05:47; Stop 05/12/21 at 07:47; Status DC Ondansetron HCl (Zofran) 4 mg STK-MED ONCE .ROUTE ; Start 05/12/21 at 05:47; Stop 05/12/21 at 07:47; Status DC Phenylephrine HCl (Michael-Synephrine Inj) 10 mg STK-MED ONCE .ROUTE ; Start 05/12/21 at 05:47; Stop 05/12/21 at 07:47; Status DC Propofol 50 ml @ As Directed STK-MED ONCE IV ; Start 05/12/21 at 05:47; Stop 05/12/21 at 07:47; Status DC Dexamethasone Sodium Phosphate (Decadron) 4 mg STK-MED ONCE .ROUTE ; Start 05/12/21 at 05:47; Stop 05/12/21 at 07:47; Status DC Fentanyl Citrate (Fentanyl 2ml Vial) 100 mcg STK-MED ONCE .ROUTE ; Start 05/12/21 at 05:47; Stop 05/12/21 at 07:47; Status DC Rocuronium [place] (Zemuron) 50 mg STK-MED ONCE .ROUTE ; Start 05/12/21 at 05:47; Stop 05/12/21 at 07:47; Status DC Remifentanil HCl (Ultiva) 1 mg STK-MED ONCE IV ; Start 05/12/21 at 05:48; Stop 05/12/21 at 07:48; Status DC Succinylcholine Chloride (Anectine) 200 mg STK-MED ONCE .ROUTE ; Start 05/12/21 at 06:04; Stop 05/12/21 at 08:04; Status DC Propofol 50 ml @ As Directed STK-MED ONCE IV ; Start 05/12/21 at 07:36; Stop 05/12/21 at 09:37; Status DC Sevoflurane (Ultane) 90 ml STK-MED ONCE IH ; Start 05/12/21 at 07:36; Stop 05/12/21 at 09:37; Status DC Glycopyrrolate (Robinul) 1 mg STK-MED ONCE .ROUTE ; Start 05/12/21 at 08:03; Stop 05/12/21 at 10:03; Status DC Neostigmine [place] (Neostigmine Methylsulfate) 5 mg STK-MED ONCE .ROUTE ; Start 05/12/21 at 08:03; Stop 05/12/21 at 10:04; Status DC Remifentanil HCl (Ultiva) 1 mg STK-MED ONCE IV ; Start 05/12/21 at 08:51; Stop 05/12/21 at 10:52; Status DC Propofol 50 ml @ As Directed STK-MED ONCE IV ; Start 05/12/21 at 08:59; Stop 05/12/21 at 11:00; Status DC Hydromorphone HCl (Dilaudid) 2 mg STK-MED ONCE .ROUTE ; Start 05/12/21 at 09:48; Stop 05/12/21 at 11:48; Status DC Allopurinol (Zyloprim) 300 mg DAILYBFRLUN PO Last administered on 05/13/21at 11:46; Start 05/13/21 at 11:30 Atorvastatin Calcium (Lipitor) 40 mg QHS PO Last administered on 05/13/21at 22:04; Start 05/13/21 at 21:00 Famotidine (Pepcid) 20 mg HS PO Last administered on 05/13/21at 22:05; Start 05/12/21 at 21:00 Fluticasone Propionate (Flonase) 2 spray PRN DAILY PRN NS ALLERGY CONTROL; Start 05/12/21 at 12:15 Furosemide (Lasix) 40 mg DAILY PO Last administered on 05/14/21at 08:34; Start 05/13/21 at 09:00 Metformin HCl (Glucophage Xr) 500 mg DAILYBFRLUN PO Last administered on 05/13/21at 11:46; Start 05/13/21 at 11:30 Sertraline HCl (Zoloft) 50 mg HS PO Last administered on 05/13/21at 22:04; Sta rt 05/12/21 at 21:00 Non-Formulary Medication (Albuterol Sulfate (Ventolin Hfa Inhaler)) 2 puff PRN QID PRN INH WHEEZING; Start 05/12/21 at 12:15; Status UNV Gabapentin (Neurontin) 300 mg TID PO Last administered on 05/14/21at 08:34; Start 05/12/21 at 14:00 Metformin HCl (Glucophage Xr) 1,000 mg HS PO Last administered on 05/13/21at 22:05; Start 05/12/21 at 21:00 Fentanyl Citrate (Fentanyl 2ml Vial) 50 mcg PRN Q2HR PRN IVP PAIN; Start 05/12/21 at 12:15 Acetaminophen (Tylenol) 650 mg PRN Q6HRS PRN PO MILD PAIN / TEMP > 100.3'F; Start 05/12/21 at 12:15 Al Hydroxide/Mg Hydroxide (Mylanta Plus Xs) 30 ml PRN Q3HRS PRN PO HEARTBURN / GAS; Start 05/12/21 at 12:15 Calcium Carbonate/ Glycine (Tums) 500 mg PRN Q3HRS PRN PO INDIGESTION; Start 05/12/21 at 12:15 Diphenhydramine HCl (Benadryl) 25 mg PRN Q6HRS PRN PO ITCHING Last administered on 05/13/21at 22:04; Start 05/12/21 at 12:15 Naloxone HCl (Narcan) 0.1 mg PRN Q2MIN PRN IV SEE COMMENTS; Start 05/12/21 at 12:15 Sodium Chloride (Normal Saline Flush) 3 ml QSHIFT PRN IV AFTER MEDS AND BLOOD DRAWS; Start 05/12/21 at 12:15 Potassium Chloride/Dextrose/ Sod Cl 1,000 ml @ 75 mls/hr [id number] IV Last administered on 05/12/21at 17:18; Start 05/12/21 at 14:00; Stop 05/14/21 at 07:50; Status DC Acetaminophen/ Hydrocodone Bitart (Lortab 5/325) 1 tab PRN Q4HRS PRN PO MILD PAIN 1-3 (2ND CHOICE) Last administered on 05/12/21at 17:18; Start 05/12/21 at 12:15 Acetaminophen/ Hydrocodone Bitart (Lortab 5/325) 2 tab PRN Q4HRS PRN PO MODERATE PAIN, SEVERE PAIN Last administered on 05/13/21at 22:56; Start 05/12/21 at 12:15 Methocarbamol (Robaxin) 750 mg PRN TID PRN PO MUSCLE SPASMS Last administered on 05/13/21at 08:16; Start 05/12/21 at 12:15 Docusate Sodium (Colace) 100 mg BID PO ; Start 05/12/21 at 21:00 Magnesium Hydroxide (Milk Of Magnesia) 2,400 mg PRN Q12HR PRN PO CONSTIPATION; Start 05/12/21 at 12:15 Albuterol Sulfate (Ventolin Neb Soln) 2.5 mg PRN QID PRN NEB SHORTNESS OF BREATH; Start 05/12/21 at 12:30 Atropine Sulfate (ATROPINE 1mg SYRINGE) 1 mg STK-MED ONCE .ROUTE ; Start 05/12/21 at 12:27; Stop 05/12/21 at 12:27; Status DC Albuterol Sulfate (Ventolin Neb Soln) 2.5 mg 1X ONCE NEB ; Start 05/12/21 at 12:45; Stop 05/12/21 at 12:46; Status DC Fentanyl Citrate (Fentanyl 2ml Vial) 100 mcg STK-MED ONCE .ROUTE ; Start 05/12/21 at 13:21; Stop 05/12/21 at 13:22; Status DC Cefazolin Sodium/ Dextrose (Ancef 2gm Premix) 2 gm STK-MED ONCE IV ; Start 05/12/21 at 06:00; Stop 05/13/21 at 13:08; Status DC Active Scripts Active Reported Atorvastatin Calcium 40 Mg Tablet 1 Tab PO DAILY Zoloft (Sertraline Hcl) 50 Mg Tablet 50 Mg PO HS Furosemide 40 Mg Tablet 40 Mg PO DAILY Ventolin Hfa Inhaler (Albuterol Sulfate) 18 Gm Hfa.aer.ad 2 Puff INH PRN QID PRN Fluticasone Propionate Nasal [place] (Fluticasone Propionate) 16 Gm [place].susp 2 [place] NS PRN DAILY PRN Gabapentin 600 Mg Tablet 300 Mg PO TID Metformin Hcl Er (Metformin Hcl) 500 Mg Tab.er.24h 500 Mg PO DAILYBFRLUN Metformin Hcl Er (Metformin Hcl) 1,000 Mg Tab.er.24 1,000 Mg PO HS Clopidogrel (Clopidogrel Bisulfate) 75 Mg Tablet 75 Mg PO DAILY Pepcid (Famotidine) 20 Mg Tablet 20 Mg PO HS Allopurinol 300 Mg Tablet 1 Tab PO DAILYBFRLUN Vitals/I & O Vital Sign - Last 24 Hours 05/13/21 05/13/21 05/13/21 05/13/21 11:00 11:47 12:20 15:00 Temp 97.6 98.6 97.6 98.6 Pulse 74 74 Resp 20 20 B/P (MAP) 122/63 (82) 113/64 (80) Pulse Ox 91 90 O2 Delivery Nasal Cannula Nasal Cannula Nasal Cannula Nasal Cannula O2 Flow Rate 3.0 2.0 2.0 3.0 05/13/21 05/13/21 05/13/21 05/13/21 18:31 19:00 19:01 20:00 Temp 97.9 97.9 Pulse 67 Resp 18 B/P (MAP) 126/61 (82) Pulse Ox 95 90 O2 Delivery Nasal Cannula Nasal Cannula Nasal Cannula Nasal Cannula O2 Flow Rate 2.0 3.0 3.0 4.0 05/13/21 05/13/21 05/13/21 05/14/21 22:56 23:00 23:26 02:49 Temp 97.7 98.0 97.7 98.0 Pulse 63 69 Resp 18 18 B/P (MAP) 147/64 (91) 145/71 (95) Pulse Ox 95 90 90 95 O2 Delivery Nasal Cannula Nasal Cannula Nasal Cannula Nasal Cannula O2 Flow Rate 3.0 3.0 3.0 3.0 05/14/21 05/14/21 07:00 07:30 Temp 98.3 98.3 Pulse 82 Resp 16 B/P (MAP) 140/63 (88) Pulse Ox 94 O2 Delivery Room Air Nasal Cannula O2 Flow Rate 4.0 Intake and Output 05/13/21 05/13/21 05/14/21 15:00 23:00 07:00 Intake Total 360 ml 660 ml 100 ml Output Total 200 ml 620 ml 250 ml Balance 160 ml 40 ml -150 ml Justifications for Admission Other Justification KATHARINE SHANKS MD May 14, 2021 10:08
[2021-05-14] MEDS: metFORMIN XR 500 MG TAB.ER.24H PO SCH ×2 (11:10→21:10)
[2021-05-14] MEDS: ALLOPURINOL 300 MG TABLET. PO SCH (11:10)
[2021-05-14 11:15] VITALS: BP 151/71
[2021-05-14 15:00] VITALS: BP 129/63
[2021-05-14 19:00] VITALS: BP 122/68
--- NOTE | 2021-05-14 20:24 | PDOC ---
PROGRESS NOTES Date of Service DATE: 05/14/21 TIME: 20:09 Subjective Subjective POD #2 up in chair some incisional pain, legs feel better has been ambulating Objective Objective Vital Signs Date Time Temp Pulse Resp B/P (MAP) Pulse Ox O2 Delivery O2 Flow Rate FiO2 05/14/21 15:00 98.1 75 16 129/63 (85) 93 Nasal Cannula 2.0 98.1 Intake and Output 05/14/21 07:00 Intake Total 1120 ml Output Total 1070 ml Balance 50 ml Intake Oral 1120 ml Output Urine Total 1070 ml # Voids 1 Physical Exam General: Alert, Oriented X3, Cooperative MUSCULOSKELETAL: Other (BROWN) Skin: Other (Dressing C,D,I, Flat) Plan Plan of Care continue PT/ OT Encouraged activity as tolerated may need SNF Comment Review of Relevant I have reviewed the following items cristian (where applicable) has been applied. Labs Laboratory Tests Test 05/13/21 07:09 05/13/21 11:16 05/13/21 16:10 05/13/21 16:34 Glucose (Fingerstick) 141 mg/dL (70-99) 161 mg/dL (70-99) 140 mg/dL (70-99) White Blood Count 8.5 x10^3/uL (4.0-11.0) Hemoglobin 12.7 g/dL (13.0-17.5) Hematocrit 38.1 % (39.0-53.0) Platelet Count 171 x10^3/uL (140-400) Sodium Level 138 mmol/L (136-145) Potassium Level 4.1 mmol/L (3.5-5.1) Chloride Level 102 mmol/L (98-107) Carbon Dioxide Level 37 mmol/L (21-32) Anion Gap (6-14) Blood Urea Nitrogen 12 mg/dL (8-26) Creatinine 0.9 mg/dL (0.7-1.3) Estimated GFR (Cockcroft-Gault) 81.6 Glucose Level 133 mg/dL (70-99) Calcium Level 8.4 mg/dL (8.5-10.1) Test 05/13/21 20:07 05/14/21 12:19 05/14/21 16:55 Glucose (Fingerstick) 168 mg/dL (70-99) 132 mg/dL (70-99) 178 mg/dL (70-99) Laboratory Tests Test 05/14/21 12:19 05/14/21 16:55 Glucose (Fingerstick) 132 mg/dL (70-99) 178 mg/dL (70-99) Medications Current Medications Cefazolin Sodium 1 gm/Sodium Chloride 1,000 ml @ 1,000 mls/hr 1X ONCE IRR Last administered on 05/12/21at 09:34; Start 05/12/21 at 06:00; Stop 05/12/21 at 06:59; Status DC Fentanyl Citrate (Fentanyl 2ml Vial) 25 mcg PRN Q5MIN PRN IVP MILD PAIN 1-3 Last administered on 05/12/21at 14:11; Start 05/12/21 at 06:00; Stop 05/13/21 at 05:59; Status DC Fentanyl Citrate (Fentanyl 2ml Vial) 50 mcg PRN Q5MIN PRN IVP MODERATE PAIN 4- 6; Start 05/12/21 at 06:00; Stop 05/13/21 at 05:59; Status DC Morphine Sulfate (Morphine Sulfate) 1 mg PRN Q10MIN PRN IVP SEVERE PAIN 7-10; Start 05/12/21 at 06:00; Stop 05/13/21 at 05:59; Status DC Ringer's Solution 1,000 ml @ 30 mls/hr Q24H IV Last administered on 05/12/21at 07:48; Start 05/12/21 at 06:00; Stop 05/12/21 at 17:59; Status DC Hydromorphone HCl (Dilaudid) 0.5 mg PRN Q10MIN PRN IVP SEVERE PAIN 7-10, 2nd CHOICE; Start 05/12/21 at 06:00; Stop 05/13/21 at 05:59; Status DC Prochlorperazine Edisylate (Compazine) 5 mg PACU PRN PRN IVP NAUSEA, MRX1; Start 05/12/21 at 06:00; Stop 05/13/21 at 05:59; Status DC Cefazolin Sodium/ Dextrose 50 ml @ 100 mls/hr 1X PREOP PRN IV PRIOR TO PROCEDURE; Start 05/12/21 at 06:00; Stop 05/12/21 at 06:28; Status DC Cefazolin Sodium 3 gm/Dextrose 100 ml @ 200 mls/hr 1X PREOP PRN IV PRIOR TO PROCEDURE Last administered on 05/12/21at 09:18; Start 05/13/21 at 06:00; Stop 05/13/21 at 15:00; Status DC Insulin Human Lispro (HumaLOG VIAL for OP,RR ONLY) 0-10 units PRN Q1HR PRN SQ PER PROTOCOL Last administered on 05/12/21at 07:54; Start 05/12/21 at 06:30; Stop 05/13/21 at 06:29; Status DC Gelatin (Gelfoam Size 100) 1 each STK-MED ONCE .ROUTE Last administered on 05/12/21at 09:34; Start 05/12/21 at 07:40; Stop 05/12/21 at 07:40; Status DC Bupivacaine HCl/ Epinephrine Bitart (Sensorcain-Epi 0.5% Kit) 30 ml STK-MED ONCE .ROUTE Last administered on 05/12/21at 09:34; Start 05/12/21 at 07:40; Stop 05/12/21 at 07:40; Status DC Ketorolac Tromethamine (Toradol Im) 60 mg STK-MED ONCE .ROUTE Last administered on 05/12/21at 09:34; Start 05/12/21 at 07:40; Stop 05/12/21 at 07:40; Status DC Thrombin 20,000 unit STK-MED ONCE TP Last administered on 05/12/21at 09:34; Start 05/12/21 at 07:40; Stop 05/12/21 at 07:41; Status DC Propofol (Diprivan) 200 mg STK-MED ONCE IV ; Start 05/12/21 at 05:47; Stop 05/12/21 at 07:47; Status DC Lidocaine HCl (Lidocaine Pf 2% Vial) 5 ml STK-MED ONCE .ROUTE ; Start 05/12/21 at 05:47; Stop 05/12/21 at 07:47; Status DC Ondansetron HCl (Zofran) 4 mg STK-MED ONCE .ROUTE ; Start 05/12/21 at 05:47; Stop 05/12/21 at 07:47; Status DC Phenylephrine HCl (Michael-Synephrine Inj) 10 mg STK-MED ONCE .ROUTE ; Start 05/12/21 at 05:47; Stop 05/12/21 at 07:47; Status DC Propofol 50 ml @ As Directed STK-MED ONCE IV ; Start 05/12/21 at 05:47; Stop 05/12/21 at 07:47; Status DC Dexamethasone Sodium Phosphate (Decadron) 4 mg STK-MED ONCE .ROUTE ; Start 05/12/21 at 05:47; Stop 05/12/21 at 07:47; Status DC Fentanyl Citrate (Fentanyl 2ml Vial) 100 mcg STK-MED ONCE .ROUTE ; Start 05/12/21 at 05:47; Stop 05/12/21 at 07:47; Status DC Rocuronium Widen (Zemuron) 50 mg STK-MED ONCE .ROUTE ; Start 05/12/21 at 05:47; Stop 05/12/21 at 07:47; Status DC Remifentanil HCl (Ultiva) 1 mg STK-MED ONCE IV ; Start 05/12/21 at 05:48; Stop 05/12/21 at 07:48; Status DC Succinylcholine Chloride (Anectine) 200 mg STK-MED ONCE .ROUTE ; Start 05/12/21 at 06:04; Stop 05/12/21 at 08:04; Status DC Propofol 50 ml @ As Directed STK-MED ONCE IV ; Start 05/12/21 at 07:36; Stop 05/12/21 at 09:37; Status DC Sevoflurane (Ultane) 90 ml STK-MED ONCE IH ; Start 05/12/21 at 07:36; Stop 1 07/12/20 at 09:37; Status DC Glycopyrrolate (Robinul) 1 mg STK-MED ONCE .ROUTE ; Start 05/12/21 at 08:03; Stop 05/12/21 at 10:03; Status DC Neostigmine Widen (Neostigmine Methylsulfate) 5 mg STK-MED ONCE .ROUTE ; Start 05/12/21 at 08:03; Stop 05/12/21 at 10:04; Status DC Remifentanil HCl (Ultiva) 1 mg STK-MED ONCE IV ; Start 05/12/21 at 08:51; Stop 05/12/21 at 10:52; Status DC Propofol 50 ml @ As Directed STK-MED ONCE IV ; Start 05/12/21 at 08:59; Stop 05/12/21 at 11:00; Status DC Hydromorphone HCl (Dilaudid) 2 mg STK-MED ONCE .ROUTE ; Start 05/12/21 at 09:48; Stop 05/12/21 at 11:48; Status DC Allopurinol (Zyloprim) 300 mg DAILYBFRLUN PO Last administered on 05/14/21at 11:10; Start 05/13/21 at 11:30 Atorvastatin Calcium (Lipitor) 40 mg QHS PO Last administered on 05/13/21at 22:04; Start 05/13/21 at 21:00 Famotidine (Pepcid) 20 mg HS PO Last administered on 05/13/21at 22:05; Start 05/12/21 at 21:00 Fluticasone Propionate (Flonase) 2 spray PRN DAILY PRN NS ALLERGY CONTROL; Start 05/12/21 at 12:15 Furosemide (Lasix) 40 mg DAILY PO Last administered on 05/14/21at 08:34; Start 05/13/21 at 09:00 Metformin HCl (Glucophage Xr) 500 mg DAILYBFRLUN PO Last administered on 05/14/21at 11:10; Start 05/13/21 at 11:30 Sertraline HCl (Zoloft) 50 mg HS PO Last administered on 05/13/21at 22:04; Start 05/12/21 at 21:00 Non-Formulary Medication (Albuterol Sulfate (Ventolin Hfa Inhaler)) 2 puff PRN QID PRN INH WHEEZING; Start 05/12/21 at 12:15; Status UNV Gabapentin (Neurontin) 300 mg TID PO Last administered on 05/14/21at 14:02; Start 05/12/21 at 14:00 Metformin HCl (Glucophage Xr) 1,000 mg HS PO Last administered on 05/13/21at 22:05; Start 05/12/21 at 21:00 Fentanyl Citrate (Fentanyl 2ml Vial) 50 mcg PRN Q2HR PRN IVP PAIN; Start 05/12/21 at 12:15 Acetaminophen (Tylenol) 650 mg PRN Q6HRS PRN PO MILD PAIN / TEMP > 100.3'F; Start 05/12/21 at 12:15 Al Hydroxide/Mg Hydroxide (Mylanta Plus Xs) 30 ml PRN Q3HRS PRN PO HEARTBURN / GAS; Start 05/12/21 at 12:15 Calcium Carbonate/ Glycine (Tums) 500 mg PRN Q3HRS PRN PO INDIGESTION; Start 05/12/21 at 12:15 Diphenhydramine HCl (Benadryl) 25 mg PRN Q6HRS PRN PO ITCHING Last administered on 05/13/21at 22:04; Start 05/12/21 at 12:15 Naloxone HCl (Narcan) 0.1 mg PRN Q2MIN PRN IV SEE COMMENTS; Start 05/12/21 at 12:15 Sodium Chloride (Normal Saline Flush) 3 ml QSHIFT PRN IV AFTER MEDS AND BLOOD DRAWS; Start 05/12/21 at 12:15 Potassium Chloride/Dextrose/ Sod Cl 1,000 ml @ 75 mls/hr [id number] IV Last administered on 05/12/21at 17:18; Start 05/12/21 at 14:00; Stop 05/14/21 at 07:50; Status DC Acetaminophen/ Hydrocodone Bitart (Lortab 5/325) 1 tab PRN Q4HRS PRN PO MILD PAIN 1-3 (2ND CHOICE) Last administered on 05/12/21at 17:18; Start 05/12/21 at 12:15 Acetaminophen/ Hydrocodone Bitart (Lortab 5/325) 2 tab PRN Q4HRS PRN PO MODERATE PAIN, SEVERE PAIN Last administered on 05/13/21at 22:56; Start 05/12/21 at 12:15 Methocarbamol (Robaxin) 750 mg PRN TID PRN PO MUSCLE SPASMS Last administered on 05/13/21at 08:16; Start 05/12/21 at 12:15 Docusate Sodium (Colace) 100 mg BID PO ; Start 05/12/21 at 21:00 Magnesium Hydroxide (Milk Of Magnesia) 2,400 mg PRN Q12HR PRN PO CONSTIPATION; Start 05/12/21 at 12:15 Albuterol Sulfate (Ventolin Neb Soln) 2.5 mg PRN QID PRN NEB SHORTNESS OF BREATH; Start 05/12/21 at 12:30 Atropine Sulfate (ATROPINE 1mg SYRINGE) 1 mg STK-MED ONCE .ROUTE ; Start 05/12/21 at 12:27; Stop 05/12/21 at 12:27; Status DC Albuterol Sulfate (Ventolin Neb Soln) 2.5 mg 1X ONCE NEB ; Start 05/12/21 at 12:45; Stop 05/12/21 at 12:46; Status DC Fentanyl Citrate (Fentanyl 2ml Vial) 100 mcg STK-MED ONCE .ROUTE ; Start 05/12/21 at 13:21; Stop 05/12/21 at 13:22; Status DC Cefazolin Sodium/ Dextrose (Ancef 2gm Premix) 2 gm STK-MED ONCE IV ; Start 05/12/21 at 06:00; Stop 05/13/21 at 13:08; Status DC Active Scripts Active Reported Atorvastatin Calcium 40 Mg Tablet 1 Tab PO DAILY Zoloft (Sertraline Hcl) 50 Mg Tablet 50 Mg PO HS Furosemide 40 Mg Tablet 40 Mg PO DAILY Ventolin Hfa Inhaler (Albuterol Sulfate) 18 Gm Hfa.aer.ad 2 Puff INH PRN QID PRN Fluticasone Propionate Nasal [place] (Fluticasone Propionate) 16 Gm [place].susp 2 [place] NS PRN DAILY PRN Gabapentin 600 Mg Tablet 300 Mg PO TID Metformin Hcl Er (Metformin Hcl) 500 Mg Tab.er.24h 500 Mg PO DAILYBFRLUN Metformin Hcl Er (Metformin Hcl) 1,000 Mg Tab.er.24 1,000 Mg PO HS Clopidogrel (Clopidogrel Bisulfate) 75 Mg Tablet 75 Mg PO DAILY Pepcid (Famotidine) 20 Mg Tablet 20 Mg PO HS Allopurinol 300 Mg Tablet 1 Tab PO DAILYBFRLUN Vitals/I & O Vital Sign - Last 24 Hours 05/13/21 05/13/21 05/13/21 05/14/21 22:56 23:00 23:26 02:49 Temp 97.7 98.0 97.7 98.0 Pulse 63 69 Resp 18 18 B/P (MAP) 147/64 (91) 145/71 (95) Pulse Ox 95 90 90 95 O2 Delivery Nasal Cannula Nasal Cannula Nasal Cannula Nasal Cannula O2 Flow Rate 3.0 3.0 3.0 3.0 05/14/21 05/14/21 05/14/21 05/14/21 07:00 07:30 11:15 15:00 Temp 98.3 97.7 98.1 98.3 97.7 98.1 Pulse 82 76 75 Resp 16 16 16 B/P (MAP) 140/63 (88) 151/71 (97) 129/63 (85) Pulse Ox 94 92 93 O2 Delivery Room Air Nasal Cannula Nasal Cannula Nasal Cannula O2 Flow Rate 4.0 2.0 2.0 Intake and Output 05/13/21 05/13/21 05/14/21 15:00 23:00 07:00 Intake Total 360 ml 660 ml 100 ml Output Total 200 ml 620 ml 250 ml Balance 160 ml 40 ml -150 ml Justifications for Admission Other Justification BRO BARRERA MD May 14, 2021 20:24
[2021-05-14] MEDS: ATORVASTATIN CALCIUM 40 MG TABLET. PO SCH (21:10)
[2021-05-14] MEDS: SERTRALINE 50 MG TABLET. PO SCH (21:10)
[2021-05-14] MEDS: FAMOTIDINE 20 MG TABLET. PO SCH (21:10)
[2021-05-14 23:00] VITALS: BP 151/55
[2021-05-15 03:00] VITALS: BP 145/66
[2021-05-15 07:00] VITALS: BP 124/63
--- NOTE | 2021-05-15 07:18 | PDOC ---
PULMONARY PROGRESS NOTES DATE: 05/15/21 TIME: 07:16 Subjective 02 2 lpm didn't use cpap last night now says he use cpap + 02 at home qhs not during naps no sob Vitals Vital Signs Date Time Temp Pulse Resp B/P (MAP) Pulse Ox O2 Delivery O2 Flow Rate FiO2 05/15/21 03:00 98.4 71 16 145/66 (92) 94 Nasal Cannula 3.0 98.4 ROS: No Nausea General: Alert HEENT: Other (nc at perrl) Lungs: Clear Cardiovascular: S1, S2 Abdomen: Soft Neuro Exam: Alert Extremities: No Edema Skin: Warm Labs Laboratory Tests Test 05/13/21 11:16 05/13/21 16:10 05/13/21 16:34 05/13/21 20:07 Glucose (Fingerstick) 161 mg/dL (70-99) 140 mg/dL (70-99) 168 mg/dL (70-99) White Blood Count 8.5 x10^3/uL (4.0-11.0) Hemoglobin 12.7 g/dL (13.0-17.5) Hematocrit 38.1 % (39.0-53.0) Platelet Count 171 x10^3/uL (140-400) Sodium Level 138 mmol/L (136-145) Potassium Level 4.1 mmol/L (3.5-5.1) Chloride Level 102 mmol/L (98-107) Carbon Dioxide Level 37 mmol/L (21-32) Anion Gap (6-14) Blood Urea Nitrogen 12 mg/dL (8-26) Creatinine 0.9 mg/dL (0.7-1.3) Estimated GFR (Cockcroft-Gault) 81.6 Glucose Level 133 mg/dL (70-99) Calcium Level 8.4 mg/dL (8.5-10.1) Test 05/14/21 12:19 05/14/21 16:55 05/14/21 20:20 Glucose (Fingerstick) 132 mg/dL (70-99) 178 mg/dL (70-99) 155 mg/dL (70-99) Laboratory Tests Test 05/14/21 12:19 05/14/21 16:55 05/14/21 20:20 Glucose (Fingerstick) 132 mg/dL (70-99) 178 mg/dL (70-99) 155 mg/dL (70-99) Medications Active Scripts Medications Dose Route/Sig Max Daily Dose Days Date Category Atorvastatin Calcium 40 Mg Tablet 1 Tab PO DAILY 05/12/21 Reported Zoloft (Sertraline Hcl) 50 Mg Tablet 50 Mg PO HS 05/05/21 Reported Furosemide 40 Mg Tablet 40 Mg PO DAILY 05/05/21 Reported Ventolin Hfa Inhaler (Albuterol Sulfate) 18 Gm Hfa.aer.ad 2 Puff INH PRN QID PRN 05/05/21 Reported Fluticasone Propionate Nasal [place] (Fluticasone Propionate) 16 Gm [place].susp 2 [place] NS PRN DAILY PRN 05/05/21 Reported Gabapentin 600 Mg Tablet 300 Mg PO TID 05/05/21 Reported Metformin Hcl Er (Metformin Hcl) 500 Mg Tab.er.24h 500 Mg PO DAILYBFRLUN 05/05/21 Reported Metformin Hcl Er (Metformin Hcl) 1,000 Mg Tab.er.24 1,000 Mg PO HS 05/05/21 Reported Clopidogrel (Clopidogrel Bisulfate) 75 Mg Tablet 75 Mg PO DAILY 05/05/21 Reported Pepcid (Famotidine) 20 Mg Tablet 20 Mg PO HS 07/13/14 Reported Allopurinol 300 Mg Tablet 1 Tab PO DAILYBFRLUN 03/19/14 Reported Impression . IMPRESSION: 1. Mild postoperative hypoxia in a patient who is morbidly obese. The hypoxia is likely contributed by the effect of anesthetics and narcotics. He has no symptoms of congestive heart failure or pneumonia. His chest x-ray is clear except for elevated hemidiaphragms. 2. The patient with underlying obstructive sleep apnea/obesity hypoventilation syndrome. use CPAP with 2 liters of oxygen at home. 3. Status post laminectomy. Plan . RECOMMENDATIONS: 1. titrate fio2 to keep sat 90% on 2 lpm not on home 02 6 min walk at dc asked rn to dc 02 check sat if >89% dc 02 2. Minimize narcotics. avoid oversedation 3. Incentive spirometry to use multiple times an hr while awake 4. bronchodilators. 5. follow up with Dr. Manuel in the office. 6. Follow Dr. Ambriz's recommendations. 7. champ the importance of tx discussed in details advised to use cpap during sleep discussed w rn, pt ok to dc from pulm standpoint JEANETTE ROMERO MD May 15, 2021 07:18
[2021-05-15] MEDS: DOCUSATE SODIUM 100 MG CAPSULE. PO SCH (08:15)
[2021-05-15] MEDS: FUROSEMIDE 40 MG TABLET. PO SCH (08:15)
[2021-05-15] MEDS: GABAPENTIN 300 MG CAPSULE. PO SCH ×2 (10:25→16:12)
[2021-05-15] MEDS: ALLOPURINOL 300 MG TABLET. PO SCH (10:25)
[2021-05-15] MEDS: metFORMIN XR 500 MG TAB.ER.24H PO SCH (10:25)
[2021-05-15 11:00] VITALS: BP 138/63
[2021-05-15] MEDS ORDERED: HYDR-2761 PO (14:16)
[2021-05-15] MEDS ORDERED: DOCU-109 PO (14:16)
--- NOTE | 2021-05-15 14:20 | SNU/HH DC ---
DISCHARGE WITH HOME HEALTH DISCHARGE INFORMATION: Discharge Date: May 15, 2021 Final Diagnosis: lumbar stenosis M48.062 Condition on Discharge: Stable CODE STATUS: Code Status: Full HOME HEALTH: Face to Face: I certify this patient is under my care and that I, or a nurse practitioner or physician's assistant public defender working with me, had a face to face encounter that meets the physician face to face encounter requirements with this patient on 05/15/21 Medical Complications: COPD, DM Fci For: Assess Cardiopulm Status, Assess & Educate Safety, Medication Management, Pain Management, pearl cutter For Eval/Treatment: Yes Physical Therapy For: Evalulation/Treatment Pt Meets Homebound Status: Unsteady balance w/ amb,, Limited distance walking POST DISCHARGE ORDERS: Activity Instructions for Disc: Activity as tolerated, Avoid exertion Weight Bearing Status after Di: No restrictions Bathing Instructions: Shower-keep dressing dry DIET AFTER DISCHARGE: ADA Wound/Incision Care: Ice to area for comfort, Keep wound/cast CDI, Change dressing Other wound/incision instructi: dressing change daily and as needed CHECKS AFTER DISCHARGE: Checks after discharge: Check blood sugar, ac/hs FOLLOW-UP: PCP to follow Home Health: Dr Barrera [phone] Follow up with: Dr. Manuel TREATMENT/EQUIPMENT ORDERS: Adaptive Equipment Issued: Walker Discharge Respiratory Equipmen: Oxygen, CPAP CERTIFICATION STATEMENT: Certification Statement: Certification Statement: Based on the above finding, I certify that this patient is confined to the home and needs intermittent custodial care, physical therapy and/or speech therapy, or continues to need occupational therapy.~ This patient is under my care, and I have initiated the establishment of the plan of care.~ This patient will be followed by myself or a community physician who will periodically review the plan of care. Home Meds Reported Medications Atorvastatin Calcium (ATORVASTATIN CALCIUM) 40 Mg Tablet, 1 TAB PO DAILY for , #30 TAB 5 Refills 05/12/21 Sertraline Hcl (ZOLOFT) 50 Mg Tablet, 50 MG PO HS for ANTI-DEPRESSANT, TAB 0 Refills 05/05/21 Furosemide (FUROSEMIDE) 40 Mg Tablet, 40 MG PO DAILY for EDEMA CONTROL, TAB 05/05/21 Albuterol Sulfate (VENTOLIN HFA INHALER) 18 Gm Hfa.aer.ad, 2 PUFF INH PRN QID PRN for WHEEZING, EACH 0 Refills 05/05/21 Fluticasone Propionate (FLUTICASONE PROPIONATE NASAL SPRAY) 16 Gm [place].susp, 2 SPRAY NS PRN DAILY PRN for ALLERGY CONTROL, EACH 05/05/21 Gabapentin (GABAPENTIN) 600 Mg Tablet, 300 MG PO TID for NEUROGENIC PAIN, TAB 05/05/21 Metformin Hcl (METFORMIN HCL ER) 500 Mg Tab.er.24h, 500 MG PO DAILYBFRLUN for DIABETES CONTROL, TAB 05/05/21 Metformin Hcl (METFORMIN HCL ER) 1,000 Mg Tab.er.24, 1000 MG PO HS for ANTI- DIABETIC, TAB 0 Refills 05/05/21 Clopidogrel Bisulfate (CLOPIDOGREL) 75 Mg Tablet, 75 MG PO DAILY for TO PREVENT BLOOD CLOTS, #30 TAB 0 Refills 05/05/21 Famotidine (PEPCID) 20 Mg Tablet, 20 MG PO HS, TAB 07/13/14 Allopurinol (ALLOPURINOL) 300 Mg Tablet, 1 TAB PO DAILYBFRLUN for CONTROL GOUT, #30 TAB 5 Refills 03/19/14 BRO BARRERA MD May 15, 2021 14:20
[2021-05-15 15:00] VITALS: BP 133/66
--- NOTE | 2021-05-15 17:30 | NUR ---
Reviewed discharge paperwork with patient, he verbally understood all instructions. 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
== END 2021-05-15 18:01 | disposition home health service (06) | DRG 516 ==
LOC: SURG 07:01 → 4 NORTH 12:12 → OBSVTOIN 05-13 15:43
PROVIDERS: ADMIT Neurological Surgery; ATTEND Neurological Surgery
PROC: 01NB0ZZ Release Lumbar Nerve, Open Approach (ICD-10-PCS; principal; 2021-05-13)
PROC: 01NB0ZZ Release Lumbar Nerve, Open Approach (ICD-10-PCS; 2021-05-13)
PROC: 4A11X4G Monitoring of Peripheral Nervous Electrical Activity, Intraoperative, External Approach (ICD-10-PCS; 2021-05-13)
DX: M48.062 Spinal stenosis, lumbar region with neurogenic claudication (principal); E66.2 Morbid (severe) obesity with alveolar hypoventilation; Z68.41 Body mass index [BMI] 40.0-44.9, adult; E11.42 Type 2 diabetes mellitus with diabetic polyneuropathy; G89.29 Other chronic pain; I25.10 Atherosclerotic heart disease of native coronary artery without angina pectoris; J44.9 Chronic obstructive pulmonary disease, unspecified; M47.816 Spondylosis without myelopathy or radiculopathy, lumbar region; R09.02 Hypoxemia; Z82.49 Family history of ischemic heart disease and other diseases of the circulatory system; Z83.3 Family history of diabetes mellitus; Z87.891 Personal history of nicotine dependence; Z95.1 Presence of aortocoronary bypass graft; Z96.653 Presence of artificial knee joint, bilateral; Z90.49 Acquired absence of other specified parts of digestive tract; Z88.8 Allergy status to other drugs, medicaments and biological substances; Z91.013 Allergy to seafood
CPT/HCPCS: 36415; 71045; 76000; 80048; 82962; 85027; 88304; 88311; 94640; A4222; A4364; A4452; A4556; A4930; A6254; A6258; G0378; G0379; J0330; J0461; J0690; J1100; J1170; J1815; J1885; J2310; J2370; J2405; J2704; J2710; J3010; J3480; J3490; J7030; 97110-GP; 97116-GP; 97530-GP; 97535-GO; J7613; Q0163